=== PATIENT | female | born 1995 ===

== ENCOUNTER 2018-05-14 02:50 | Emergency (ER) | payer SELFPAY ==
[2018-05-14 02:50] VITALS: BMI 29.2
[2018-05-14 03:13] VITALS: RESP 16; TEMP 97.2; O2SAT 98
--- NOTE | 2018-05-14 03:53 | ED PDOC ---
HPI: Psych/Substance Abuse Time Seen by Provider: 05/14/18 03:07 Chief Complaint (Nursing): Alcohol Ingestion Chief Complaint (Provider): etoh History Per: Patient, EMS Additional Complaint(s): 22 y/o female brought in by EMS for acute alcohol intoxication. Patient intoxicated, agitated. HPI slightly limited due to patients current state. Past Medical History Reviewed: Historical Data, Nursing Documentation, Vital Signs Vital Signs: Last Vital Signs Temp 97.2 F L 05/14/18 03:10 Pulse 110 H 05/14/18 03:10 Resp 16 05/14/18 03:10 BP 146/84 05/14/18 03:10 Pulse Ox 98 05/14/18 03:10 - Medical History PMH: Anxiety, Depression Denies: Diabetes, Hepatitis, HIV, HTN, Chronic Kidney Disease, Seizures, Sexually Transmitted Disease - Family History Family History: States: No Known Family Hx - Immunization History Hx Tetanus Toxoid Vaccination: Yes (cut to her hand in the past) - Home Medications Home Medications: Ambulatory Orders Medication Instructions Recorded Azithromycin 250 mg PO DAILY #6 tab 10/14/15 Promethazine/Codeine 5 ml PO Q4H PRN #120 ml 10/14/15 [Codeine/Promethazine 10 MG/5 Ml-6.25 MG/5 Ml] - Allergies Allergies/Adverse Reactions: Allergies Allergy/AdvReac Type Severity Reaction Status Date / Time cat dander Allergy URTICARIA Verified 05/14/18 03:10 FURNACE HEAT Allergy URTICARIA Uncoded 05/14/18 03:10 Review of Systems ROS Statement: Except As Marked, All Systems Reviewed And Found Negative Physical Exam - Reviewed Nursing Documentation Reviewed: Yes Vital Signs Reviewed: Yes - Physical Exam Appears: Positive for: Well, Non-toxic, Uncomfortable (agitated, intoxicated) Head Exam: Positive for: ATRAUMATIC, NORMAL INSPECTION, NORMOCEPHALIC Skin: Positive for: Normal Color Eye Exam: Positive for: Normal appearance ENT: Positive for: Normal ENT Inspection Cardiovascular/Chest: Positive for: Regular Rate, Rhythm Respiratory: Positive for: Normal Breath Sounds Back: Positive for: Normal Inspection Extremity: Positive for: Normal ROM Neurologic/Psych: Positive for: Alert, Oriented - ECG O2 Sat by Pulse Oximetry: 98 - Progress ED Course And Treament: Patient agitated, cursing at staff. Attempting to walk out of exam room with unsteady gait Patient failing to comply with alternative measures offered; restrained and medicated with Ativan IM for safety 4:00 Patient awake, tates she needs to be discharged to go to work in the am, agreeable to lab draw 5:30 Patient remains awake, now calm. Restraints removed. Ambulating steady gait Stable for discharge Disposition - Clinical Impression Clinical Impression: Alcohol intoxication - Patient ED Disposition Is Patient to be Admitted: No Counseled Patient/Family Regarding: Studies Performed, Diagnosis, Need For Followup - Disposition Disposition: Routine/Home Disposition Time: 05:29 Condition: IMPROVED Instructions: Alcohol Use - When Is Drinking a Problem?
[2018-05-14 06:05] VITALS: BP 122/78; PULSE 78
== END 2018-05-14 05:38 | disposition home or self-care (01) ==
LOC: H.ER 02:50
DX: F10.129 Alcohol abuse with intoxication, unspecified (principal); F32.9 Major depressive disorder, single episode, unspecified; F41.9 Anxiety disorder, unspecified
CPT/HCPCS: 96372; 99284; G0480; J2060